=== PATIENT | female | born 1990 | race African-American/Black ===

== ENCOUNTER 2017-11-15 13:25 | Inpatient (IN) | payer SELFPAY ==
[2017-11-15 13:41] LABS: Base Excess-Venous -2.2 mmol/L (0 (+/- 2.5)); Bicarbonate (HCO3v) 21.9 mmol/L (1.0-85.0); CO2 Tension (PvCO2) 33.7 mmHg (41.0-51.0); Calcium, Ionized 1.09 mmol/L (1.12-1.32); Hemoglobin - Calc 9.1 g/dL (12.0-18.0); O2 Tension (PvO2) 16.8 mmHg (35.0-45.0); Potassium 3.6 mmol/L (3.4-4.7); T. Carbon Dioxide 22.9 mmol/L (1.0-85.0); pH (Venous) 7.421 (7.35-7.45); vO2 Saturation-calc 25.1 % (94-98)
[2017-11-15 13:43] LABS: #Basophils 0.1 thou/uL (0.0-0.2); #Eosinphils 0.3 thou/uL (0.0-0.7); #Lymphocytes 4.3 thou/uL (1.20-3.40); #Monocytes 1.2 thou/uL (0.11-0.59); #Neutrophils 6.4 thou/uL (1.40-6.50); %Basophils 0.7 % (0.0-1.0); %Eosinophils 2.1 % (0.0-10.0); %Lymphocytes 35.1 % (21.0-51.0); %Monocytes 9.7 % (0.0-10.0); %Neutrophils 52.3 % (42.0-75.0); Hemoglobin 8.5 g/dL (12.0-16.0); Mean Corpuscular HGB CONC 31.3 g/dL (32.0-36.0); Mean Corpuscular Hemoglobin 25.9 pg (27.0-31.0); Mean Corpuscular Volume 82.8 fl (81.0-99.0); Platelet Count 259 thou/uL (130-400); RBC Distribution Width 13.2 % (11.5-14.5); Red Blood Cell (RBC) Count 3.29 mill/uL (4.20-5.40); White Blood Cell (WBC) Count 12.2 thou/uL (4.8-10.8)
[2017-11-15 13:53] LABS: BHCG - Serum Negative (NEGATIVE); Pregs Control Background? CLEAR/WHITE (CLR/WHITE); Pregs Control Bar Appear? YES (CONTROL BAR)
--- NOTE | 2017-11-15 14:05 | RAD ---
PORTABLE CHEST 1 VIEW: Date: 11/15/17 Time: 1354 hours HISTORY: SVT. FINDINGS: Comparison made with exam of 11/18/12. The heart size is normal. The lungs are well expanded without focal areas of consolidation, pneumotho rax, or pleural effusions. IMPRESSION: No radiographic evidence of acute cardiopulmonary process. POS: [facility]
[2017-11-15 14:08] LABS: Bilirubin Negative (Negative); Blood, Urine Negative (Negative); Clarity CLEAR (Clear); Glucose, Urine (Dipstick) Negative (Negative); Leukocyte Negative (Negative); Nitrite Negative (Negative); Protein, Urine (Dipstick) 30 mg/dL (Neg-Trace); Specific Gravity, Urine 1.031 (1.002-1.036)
[2017-11-15 14:11] LABS: Bacteria/HPF None Seen HPF (None Seen); RBC/HPF 0-3 HPF (0-3)
[2017-11-15 14:11] LABS: CKMB 0.4 ng/mL (0-6.6); Troponin I Less than 0.010 ng/mL (< 0.028)
[2017-11-15 14:12] LABS: Acetaminophen Less than 6.0 mcg/mL (10.0-30.0); Alcohol Less than 10 mg/dL (Less than 10); Salicylate Less than 8.0 mg/dL (15.0-30.0)
[2017-11-15 14:14] LABS: ALT (SGPT) 9 U/L (8-55); AST (SGOT) 15 U/L (5-34); Albumin 3.5 g/dL (3.5-5.0); Alkaline Phosphatase 83 U/L (40-150); Anion Gap 13 mmol/L (10-20); BUN (Urea Nitrogen) 9 mg/dL (7.0-18.7); Bilirubin, Total 0.4 mg/dL (0.2-1.2); Calc. Creatinine Clearance 0 mL/min (70-130); Calcium 8.4 mg/dL (7.8-10.44); Carbon Dioxide 21 mmol/L (22-29); Chloride 103 mmol/L (98-107); Estimated GFR-MDRD Greater than 90; Globulin 3.1 g/dL (2.4-3.5); Glucose 131 mg/dL (70-105); Potassium 3.6 mmol/L (3.5-5.1); Protein, Total 6.6 g/dL (6.0-8.3); Sodium 133 mmol/L (136-145)
[2017-11-15 14:31] LABS: Amphetamine Not Detected (NotDetected); Barbiturates Screen Not Detected (NotDetected); Benzodiazepine Screen Not Detected (NotDetected); Cocaine Metabolite Screen Not Detected (NotDetected); Medtox Control Line Valid? VALID (VALID); Medtox Reader # READER 1; Methadone Not Detected (NotDetected); Methamphetamine Not Detected (NotDetected); Opiate Screen Not Detected (NotDetected); Oxycodone Screen Not Detected (NotDetected); Phencyclidine (PCP) Not Detected (NotDetected); THC/Cannabinoid Screen Not Detected (NotDetected); Tricyclic Screen Not Detected (NotDetected)
[2017-11-15 14:35] LABS: Pathc Cast-AUWi Flag 2.61 (0-2.49)
[2017-11-15 14:53] LABS: Renal Epithelial 0-3 HPF (0-3); Transitional Epithelial 0-3 HPF (0-3)
[2017-11-15 14:59] LABS: Hyaline Casts/LPF 0-3 HYALINE CAST LPF (0-3 Hyaline)
[2017-11-15 15:00] LABS: Other Casts/LPF None Seen LPF (0-3 Hyaline)
--- NOTE | 2017-11-15 15:10 | CT ---
CT HEAD NONCONTRAST DATE: 11/15/17 HISTORY: Left lower extremity weakness. Altered mental status. FINDINGS: No comparison. There is no evidence of acute intracranial hemorrhage or infarct. The ventricles appear normal in siz e, shape, and position. There is no mass effect or shift of midline structures. IMPRESSION: No acute intracranial abnormalities are demonstrated on noncontrast CT head. POS: [facility]
[2017-11-15 17:08] LABS: Hemoglobin 7.3 g/dL (12.0-16.0)
[2017-11-15] MEDS ORDERED: Acetaminophen 325 MG TAB PO PRN (17:22)
[2017-11-15] MEDS ORDERED: Estrogens, Conjugated 0.3 MG TAB PO SCH ×2 (17:30→23:59)
--- NOTE | 2017-11-15 19:07 | ULT ---
PELVIC ULTRASOUND: 11/15/17 No evidence for transvaginal exam or vascular duplex examination. A transabdominal exam only was performed. HISTORY: 27-year-old female with heavy vaginal bleeding, dizziness, and syncope. The uterus is enlarged measuring 13.8 x 10.1 x 9.3 cm with a 1.8 cm thickened endometrium. Right and left ovaries were not demonstrated. There is a very large intrauterine fibroid measuring 6.3 x 7.7 x 8.8 cm. there does appear to be some cul-de-sac fluid. IMPRESSION: Large intrauterine fibroid. Somewhat thickened endometrium at 1,8 cm. Enlarged uterus. Nonvisualized ovaries. Evidence for some free cul-de-sac fluid. POS: [facility]
[2017-11-15] MEDS ORDERED: Sodium Chloride 0.9% 10 ML ONE (19:15)
[2017-11-15] MEDS: Sodium Chloride 0.9% 1,000 ML IV SCH (20:24)
[2017-11-16] MEDS ORDERED: Fentanyl 100 MCG/2 ML VIAL SLOW IVP SCH (01:15)
--- NOTE | 2017-11-16 04:43 | HP ---
DATE OF SERVICE: 11/15/2017 CHIEF COMPLAINT: Dizziness, presyncope, and heavy menstrual bleeding. HISTORY OF PRESENT ILLNESS: This is a 27-year-old para 1 who presented to the emergency department after a presyncopal episode at work. She arrived via EMS and was noted to be tachycardic and anemic. She reports that she has been on her period for approximately 4 days and that it is quite a bit heavier than usual with passage of clots. She started feeling dizzy today and came in for evaluation. She reports mild cramping when she passes clots, otherwise is without pain. While in the emergency department, she dropped her hemoglobin by a gram in 1 hour, so I was consulted for admission. She reports that she is doing okay right now and denies any nausea, vomiting or other concerns. She is currently eating dinner. The patient is on Nexplanon for control and has been for approximately 1-1/2 years. She has had irregular cycles since placement, but never this heavy. REVIEW OF SYSTEMS: Negative for head, eyes, ears, nose, throat, cardiovascular , respiratory, GI, , neuro, psych, musculoskeletal, skin or constitutional symptoms other than mentioned above. PAST MEDICAL HISTORY: Asthma. PAST SURGICAL HISTORY: 1. x1. 2. Foot surgery. MEDICATIONS: Albuterol inhaler as needed. ALLERGIES: No known drug allergies. SOCIAL HISTORY: Negative for tobacco, alcohol, or drug abuse. FAMILY HISTORY: Noncontributory. PHYSICAL EXAMINATION: VITAL SIGNS: Blood pressure 115/61, pulse 111, temperature 99.9, respiratory rate 20, and O2 saturation 99% on room air. GENERAL: Awake, alert, in no acute distress. CHEST: Nonlabored breathing. ABDOMEN: Soft, nontender to palpation, enlarged uterus approximately 15 weeks in size. LABORATORY DATA: Hemoglobin 7.3, hematocrit 23.0, platelets 259,000. Chemistry essentially unremarkable. test negative. Urinalysis consistent with contamination. Urine drug screen negative. IMAGING: Transvaginal ultrasound revealed an enlarged uterus measuring approximately 13.8 x 10.1 x 9.3 cm with a 1.8 cm endometrium. There is one large fibroid measuring 6.3 x 7.7 x 8.8 cm. Small amount of free fluid in the pelvis. Ovaries were not visualized. ASSESSMENT AND PLAN: A 27-year-old para 1 with abnormal uterine bleeding, likely due to her fibroid uterus. Since the Nexplanon has been in place for a year and half without much issue, this is less likely to be the cause with her symptomatic anemia. We will admit for transfusion of packed red blood cells. For acute bleeding, we will start Premarin 2.5 mg 4 times daily until her bleeding decreases. We will continue to monitor. MTDD
[2017-11-16 05:11] VITALS: BMI 24.5
[2017-11-16 05:43] LABS: #Eosinphils 0.3 thou/uL (0.0-0.7); #Lymphocytes 2.5 thou/uL (1.20-3.40); #Monocytes 0.9 thou/uL (0.11-0.59); #Neutrophils 4.7 thou/uL (1.40-6.50); %Basophils 0.1 % (0.0-1.0); %Eosinophils 4.1 % (0.0-10.0); %Lymphocytes 29.5 % (21.0-51.0); %Monocytes 10.8 % (0.0-10.0); %Neutrophils 55.6 % (42.0-75.0); Hemoglobin 6.7 g/dL (12.0-16.0); Mean Corpuscular HGB CONC 33.3 g/dL (32.0-36.0); Mean Corpuscular Hemoglobin 28.1 pg (27.0-31.0); Mean Corpuscular Volume 84.5 fl (81.0-99.0); Mean Platelet Volume 8.9 fL (7.4-10.4); Platelet Count 167 thou/uL (130-400); RBC Distribution Width 13.2 % (11.5-14.5); Red Blood Cell (RBC) Count 2.37 mill/uL (4.20-5.40); White Blood Cell (WBC) Count 8.5 thou/uL (4.8-10.8)
[2017-11-16] MEDS: Sodium Chloride 0.9% 1,000 ML IV SCH ×4 (05:50→18:36)
--- NOTE | 2017-11-16 09:33 | PDOC.EVN ---
Event Note - Event Note Event Note: Report received from Dr. Resendiz. Denies dizziness or headache. VS are stable, P= 108. Abdomen is NT, uterus c/w 16 weeks. Small- moderate amt. of bleeding on pad, no clots. States Dr. Franks did pap on her ~ 1 year ago that was normal. 2nd unit PRBc transfusing now. Will repeat H/H in 4 hrs post transfusion and observe closely.
[2017-11-16 15:00] LABS: Hemoglobin 6.8 g/dL (12.0-16.0)
--- NOTE | 2017-11-16 15:52 | PDOC.EVN ---
Event Note - Event Note Event Note: CTSP for bleeding, large clot passed into toilet. Now s/p 2 units PRBC. Hgb returns unchanged at 6.9. Will make NPO and transfuse with 2 more units of PRBCs.
--- NOTE | 2017-11-16 17:32 | PDOC.EVN ---
Event Note - Event Note Event Note: [place] called for episode of syncope in bathroom. Assisted with getting pt. back to bed. D/w Dr. Becerra, will transfer to ICU for stabilization and transfusion.
--- NOTE | 2017-11-16 18:35 | PDOC.EVN ---
Event Note - Event Note Event Note: Reviewed with Dr. Becerra. BP currently stable in ICU. PRBC ordered, coags pending. Once complete will proceed to OR for EUA and D&C, possible hysteroscopy. Have d/w Dr. Solano.
[2017-11-16 18:43] LABS: Platelet Count 150 thou/uL (130-400)
[2017-11-16 18:46] LABS: Fibrinogen 190 mg/dL (253-463)
[2017-11-16 18:47] LABS: INR-International Normal Ratio 1.2; PTT 25.8 SEC (22.9-36.1); Prothrombin Time 14.9 SEC (12.0-14.7)
--- NOTE | 2017-11-16 18:48 | RAD ---
PORTABLE CHEST: 11/16/17 HISTORY: Hypotension. Lungs appear clear. No evidence of infiltrate. Heart and mediastinum unremarkable. IMPRESSION: No acute abnormality identified. POS: [facility]
[2017-11-16 19:26] LABS: FSP-Qualitative Normal (Normal)
[2017-11-16] MEDS ORDERED: Glycopyrrolate 0.2 MG/ML 5 ML SYRINGE ONE (20:07)
[2017-11-16] MEDS ORDERED: Lidocaine 1% PF 5 ML VIAL ONE (20:07)
[2017-11-16] MEDS ORDERED: Succinylcholine Chloride 20 MG/ML 10 ml SYRINGE FS ONE (20:07)
[2017-11-16] MEDS ORDERED: PROPOFOL 200 MG/20 ML VIAL ONE (20:07)
[2017-11-16] MEDS ORDERED: Midazolam HCl 2 mg/2 ml Vial ONE (20:49)
[2017-11-16] MEDS ORDERED: Fentanyl 100 MCG/2 ML VIAL ONE ×3 (20:49→23:11)
[2017-11-16] MEDS: Famotidine 40 MG/4 ML VIAL SLOW IVP SCH (22:07)
[2017-11-16] MEDS ORDERED: Sodium Chloride 0.9% 20 ML ONE (22:33)
[2017-11-16] MEDS ORDERED: Rocuronium Bromide 50 MG/5 ML VIAL ONE (23:11)
[2017-11-17] MEDS ORDERED: Fentanyl 100 MCG/2 ML VIAL ONE (00:05)
[2017-11-17] MEDS ORDERED: HYDROmorphone 0.5 MG/0.5 ML SYRINGE ONE (00:06)
[2017-11-17] MEDS ORDERED: Morphine 4 MG/ML VIAL SLOW IVP PRN (00:27)
[2017-11-17] MEDS ORDERED: Ondansetron HCl/PF 4 MG/2 ML Vial IVP PRN (00:27)
[2017-11-17] MEDS: Dextrose 5 %-0.45 % NaCl 1,000 ML IV SCH ×3 (01:00→11:36)
--- NOTE | 2017-11-17 01:57 | CON ---
DATE OF CONSULTATION: 11/16/2017 A 27-year-old female who was admitted to the hospital on 11/15 with a syncopal episo de at work. She was found to have severe vaginal bleeding for apparently 4 days. She denies any chest pain, chills or sweats. She was on the OB floor this evening when she became pa le, diaphoretic. Fredy Caro was called and was transferred to the ICU. We were notified about her t ransfer and hypertension. When she arrived, she did not have any access to midline. An 18-gauge catheter had been placed by [facility] ICU nurse. The patient is awake, alert, responsive, appears to be in no significant distress. Additionally to note, she has had no previous history of severe vaginal bleeding. PAST MEDICAL HISTORY: Pertinent for a presumed asthma. No history of diabetes, hypertension. PAST SURGICAL HISTORY: , one child; foot surgery. She has medication apparently MDI inhale r, which she takes as needed. ALLERGIES: None. 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 REVIEW OF SYSTEMS: Ten-point negative. PHYSICAL EXAMINATION: VITAL SIGNS: Sats 100% on room air, pulse is 117, blood pressure 131/79, respirations 16. Stat ches t x-ray shows no infiltrates. CHEST: No wheezing or crackles. CARDIAC: Normal S1, S2, no gallops. ABDOMEN: Soft, distended. LABORATORY DATA: H&H is 6.8 and 20. IMPRESION: 1. Massivevaginal bleeding, felt to be secondary to intrauterine fibroid. 2. History of asthma. Blood being transfused to keep an H&H of 9 and 27. I discussed with OB doctor, Dr. Mccoy that best option is to take to the OR as soon as possible to assess the cause of bleeding. This can be stopped obviously to the best solution. We will observe in the ICU, so far urine output which appears to be stable. Labs otherwise unremarka ble, at this time. Critical care time 45 minutes.
--- NOTE | 2017-11-17 02:26 | OP ---
DATE OF OPERATION: 11/17/2017. PREOPERATIVE DIAGNOSIS: Menorrhagia refractory to medical management. POSTOPERATIVE DIAGNOSIS: Menorrhagia refractory to medical management. PROCEDURES: 1. Examination under anesthesia. 2. Sharp curettage of the uterus. 3. Supracervical hysterectomy. FINDINGS: 1. A 16 week size fibroid uterus. 2. Normal adnexa bilaterally. SURGEON: Tyler Mccoy M.D. MISSILE MECHANIC: Stef Solano DO. ANESTHESIA: General endotracheal. ESTIMATED BLOOD LOSS: 200-300 mL COMPLICATIONS: None. COMPONENTS GIVEN: 2 units of packed red blood cells and 1 unit FFP given by central line. FLUIDS: 1900 mL crystalloid. URINE OUTPUT: 100 mL Prophylaxis: Ancef 2 grams IV prior to incision TECHNIQUE IN DETAIL: After good general endotracheal anesthesia was achieved, a central line was placed by Anesthesia. The patient was prepped and draped in the usual sterile fashion in the dorsal lithotomy position. A copious amount of bleeding was seen from the vagina. One exam the cervix was normal and showed no concerning cervical lesions. The cervical os required minimal dilation and a sharp curet was placed into the interior of the uterus. A copious amount of blood was seen and what appeared to be necrotic tissue was obtained. At this point, it was decided due to the copious nature of her bleeding and the fact that she had required several units of packed red blood cells to proceed with definitive surgery in the form of hysterectomy. While the patient was being prepared for this, I did speak with her designated family member, which was her mother. I explained the situation of the persistent heavy bleeding and that I would be unable to stop it with a D&C and at this point I believed it best to go ahead and move forward with hysterectomy to stop the heavy bleeding. She agreed and consent was obtained. I returned to the operating room, where the patient was placed in the supine position. The abdomen was prepped in the usual sterile fashion and a Clancy catheter had been placed. An incision was made through a previous existing Pfannenstiel scar. The abdomen was entered in layers. Upon entry into the abdominal cavity, it could be seen that she had a 16-week size uterus that appeared to contain a large fibroid. Both adnexa were normal. The uterus was delivered from the incision and a self-retaining retractor was placed. The bowel was packed away with wet lap packs. The round ligaments were divided and then sutured with a Vicryl suture. A bladder flap was created and the bladder was dissected free of the lower uterine segment. The uteroovarian ligaments were divided using paired Ana Maria clamps. Uterine artery pedicles were divided in a similar fashion using Ana Maria clamps. These were suture ligated with Vicryl suture. A series of paired clamps were then placed below the isthmus of the cervix. A decision was made due to her long cervix and the amount of bleeding that she had previously we would stop short of a complete hysterectomy and complete this supracervically. The uterus was then removed from the cervix just below the isthmus. The cervix was then closed using interrupted [id number] Vicryl sutures. Good hemostasis was noted. The pelvic gutters were cleared of all clots and debris and she was thoroughly irrigated. She was noted to be dry throughout the pelvis. A self-retaining retractor and wet lap packs were removed. The omentum was straightened. The fascia was closed using 2 sutures of 0 Vicryl brought laterally to the midline in an alternating running locking fashion. The subcutaneous tissue was made dry using Bovie coagulation technique and the skin was closed with metal pippa. Sponge, lap, and needle counts were correct. The patient tolerated the procedure well and will be taken back to the ICU for recovery. MOMO
[2017-11-17] MEDS: Sodium Chloride 0.9% 1,000 ML IV SCH ×4 (04:12→20:45)
[2017-11-17 05:09] LABS: #Eosinphils 0.1 thou/uL (0.0-0.7); #Lymphocytes 1.2 thou/uL (1.20-3.40); #Monocytes 1.2 thou/uL (0.11-0.59); %Eosinophils 0.4 % (0.0-10.0); %Lymphocytes 7.5 % (21.0-51.0); %Neutrophils 85.1 % (42.0-75.0); Hemoglobin 9.6 g/dL (12.0-16.0); Mean Corpuscular HGB CONC 33.9 g/dL (32.0-36.0); Mean Corpuscular Hemoglobin 30.6 pg (27.0-31.0); Mean Corpuscular Volume 90.2 fl (81.0-99.0); Mean Platelet Volume 9.3 fL (7.4-10.4); Platelet Count 81 thou/uL (130-400); RBC Distribution Width 13.3 % (11.5-14.5); Red Blood Cell (RBC) Count 3.15 mill/uL (4.20-5.40); White Blood Cell (WBC) Count 16.4 thou/uL (4.8-10.8)
[2017-11-17 05:19] LABS: Anion Gap 9 mmol/L (10-20); BUN (Urea Nitrogen) 6 mg/dL (7.0-18.7); Calc. Creatinine Clearance 125 mL/min (70-130); Carbon Dioxide 21 mmol/L (22-29); Chloride 110 mmol/L (98-107); Estimated GFR-MDRD Greater than 90; Glucose 183 mg/dL (70-105); Potassium 3.5 mmol/L (3.5-5.1); Sodium 136 mmol/L (136-145)
--- NOTE | 2017-11-17 07:03 | PRG ---
DATE OF SERVICE: 11/17/2017 SUBJECTIVE: Resting comfortably in ICU. No voiced complaints. OBJECTIVE: VITAL SIGNS: This morning, pulse is 99, blood pressure 100/64, respirations 13 , 100% O2 saturation. Urine output has been 775 mL. ABDOMEN: Soft and flat. Her dressing is dry. GENITOURINARY: Her Clancy shows clear urine. Lab; H/H this AM is 9.6 and 28. ASSESSMENT: Postop day #1, status post supracervical hysterectomy for menorrhagia refractory to medical management. PLAN: She will continue in the ICU this morning and likely she will be able to be transferred to the gynecology floor later today. MOMO
[2017-11-17] MEDS: Mometasone/Formoterol 120 PUFF INHALER INH SCH ×2 (08:07→19:59)
--- NOTE | 2017-11-17 08:32 | PRG ---
DATE OF SERVICE: 11/17/2017 SUBJECTIVE: This morning, awake, alert, and responsive. She was found to have a very large 16 week size fibroid uterus. She was given 2 units of packed cells prior to the procedure. Hysterectomy was performed for excessive bleeding and hypertension. Denies any wheezing or cough. OBJECTIVE: VITAL SIGNS: This morning, pulse 102, blood pressure 102/60, sats are 100% on room air, respiration 22. CHEST: Reveals decreased breath sounds without any wheezing. CARDIAC: Normal S1, S2. No gallops. ABDOMEN: Soft, no masses. LABORATORY DATA: Electrolytes are normal. Her fibrinogen level was slightly low at 190. White coun t 16,000, H&H is 9 and 28, platelet count is 81,000. IMPRESSION: 1. Status post hysterectomy. 3. Low grade DIC. 3. Hypertension. PLAN: The patient to be stable. To be transferred out of the ICU. Continue to monitor lab, H&H. Pulmonary and Critical care will follow at a distance when she leaves the ICU.
[2017-11-17] MEDS: Acetaminophen/Codeine 30-300mg Tablet PO PRN ×3 (09:03→21:32)
[2017-11-17] MEDS: Famotidine 40 MG/4 ML VIAL SLOW IVP SCH ×2 (10:13→20:45)
[2017-11-17] MEDS: Morphine 5 MG/ML SYRINGE SLOW IVP PRN ×2 (11:20→16:02)
[2017-11-18] MEDS: Sodium Chloride 0.9% 1,000 ML IV SCH ×2 (05:17→13:09)
[2017-11-18 05:24] LABS: #Eosinphils 0.1 thou/uL (0.0-0.7); #Lymphocytes 1.4 thou/uL (1.20-3.40); #Monocytes 1.2 thou/uL (0.11-0.59); #Neutrophils 7.7 thou/uL (1.40-6.50); %Basophils 0.2 % (0.0-1.0); %Eosinophils 0.6 % (0.0-10.0); %Lymphocytes 13.2 % (21.0-51.0); %Monocytes 11.5 % (0.0-10.0); %Neutrophils 74.5 % (42.0-75.0); Hemoglobin 8.4 g/dL (12.0-16.0); Mean Corpuscular HGB CONC 33.2 g/dL (32.0-36.0); Mean Corpuscular Hemoglobin 30.1 pg (27.0-31.0); Mean Corpuscular Volume 90.6 fl (81.0-99.0); Mean Platelet Volume 8.3 fL (7.4-10.4); Platelet Count 100 thou/uL (130-400); RBC Distribution Width 13.7 % (11.5-14.5); Red Blood Cell (RBC) Count 2.79 mill/uL (4.20-5.40); White Blood Cell (WBC) Count 10.3 thou/uL (4.8-10.8)
[2017-11-18 05:36] LABS: Anion Gap 6 mmol/L (10-20); BUN (Urea Nitrogen) 4 mg/dL (7.0-18.7); Calc. Creatinine Clearance 123 mL/min (70-130); Calcium 7.2 mg/dL (7.8-10.44); Carbon Dioxide 23 mmol/L (22-29); Chloride 110 mmol/L (98-107); Estimated GFR-MDRD Greater than 90; Glucose 99 mg/dL (70-105); Potassium 3.2 mmol/L (3.5-5.1); Sodium 136 mmol/L (136-145)
--- NOTE | 2017-11-18 07:46 | PRG ---
DATE OF SERVICE: 11/18/2017 SUBJECTIVE: The patient is doing well this morning. She reports her pain is well controlled. She h as ambulated once in the halls, but has not walked much otherwise. She is able to void freely and to lerate a small amount of p.o. PHYSICAL EXAMINATION: VITAL SIGNS: Blood pressure 101/58, pulse 115, respiratory rate 18, temperature 100.0. GENERAL: Awake, alert, in no acute distress. ABDOMEN: Soft, nontender to palpation. No guarding or rebound. Incision is well approximated with no evidence of infection. [place] in place. LABORATORY DATA: WBC 10.3, hemoglobin 8.4, hematocrit 25.3, platelets 100,000. Chemistry: [place] m 3.2, calcium 7.2. Everything else otherwise unremarkable. ASSESSMENT AND PLAN: A 27-year-old status post laparotomy with supracervical hysterectomy, postopera tive day #1, doing fairly well. We will continue to advance diet as tolerated. She was encouraged t o ambulate in the halls more frequently today. We will continue to monitor today. I will order oral potassium replacement.
[2017-11-18] MEDS: Mometasone/Formoterol 120 PUFF INHALER INH SCH ×2 (07:51→20:10)
[2017-11-18] MEDS: Potassium Chloride 20 MEQ TAB PO SCH ×2 (08:25→13:12)
[2017-11-18] MEDS: Famotidine 40 MG/4 ML VIAL SLOW IVP SCH (10:12)
[2017-11-18] MEDS: Acetaminophen/Codeine 30-300mg Tablet PO PRN ×2 (10:59→17:13)
--- NOTE | 2017-11-18 19:00 | PRG ---
DATE OF SERVICE: 11/18/2017 SUBJECTIVE: This morning, awake, alert and responsive. OBJECTIVE: VITAL SIGNS: Blood pressure 131/76, low grade temperature of 99, respirations 18, sats are 99% on ro om air. She denies any pain, shortness of breath or cough. CHEST: Reveals decreased breath sounds, no wheezing. CARDIAC: Normal S1, S2, no gallops. ABDOMEN: Distended, but soft. EXTREMITIES: No edema. LABORATORY DATA: White count 10,000, H&H 8 and 24, platelet count is 100. She has a low grade DIC. IMPRESSION: 1. Status post hysterectomy for profuse vaginal bleeding secondary to fibroids. 2. Low grade disseminated intravascular coagulation, slowly getting better. PLAN: Pulmonary Critical Care will follow at a distance. Disposition as per primary care physician.
[2017-11-18] MEDS ORDERED: Famotidine/PF 20 mg/2ml Vial SLOW IVP SCH (22:30)
[2017-11-19] MEDS: Sodium Chloride 0.9% 1,000 ML IV SCH (00:38)
[2017-11-19] MEDS: Acetaminophen/Codeine 30-300mg Tablet PO PRN ×2 (02:55→08:23)
--- NOTE | 2017-11-19 07:13 | PRG ---
DATE OF SERVICE: 11/19/2017 TIME OF SERVICE: 0700 The patient is postoperative day #2 to 3 status post HANK with blood transfusion of 7 units PRBCs and 2 units FFP for dysfunctional uterine bleeding with fibroids SUBJECTIVE: The patient says she feels much better. She denies weakness, dizziness with ambulation. OBJECTIVE: VITAL SIGNS: Resting at midnight. She had a pulse of 110. Her pulse throughout the day has been 10 1-110. She has been afebrile with a temperature of 98.3, blood pressure 114/55, respirations 18. HEENT: Within normal limits. LUNGS: Clear to auscultation bilaterally. HEART: Regular rate and rhythm, mildly tachycardic. ABDOMEN: Soft, nontender, nondistended. She has hypoactive, but present bowel sounds in all 4 quadr ants. EXTREMITIES: Without clubbing, cyanosis or edema. Perineum dry. LABORATORY STUDIES: A.m. labs were not done despite being a series. These were ordered at this time . IMPRESSION: The patient is doing well status post hysterectomy with significant blood loss. Repeat CBC and base met for this a.m. are pending. We will check these and watch the patient throughout the day. Despite not passing flatus, the patient exhibits no signs or symptoms of bowel obstruction. S he has mild tachycardia without pulsatile and seems to be tolerating her anemia well. We will check the patient out to Dr. Ying and consider for possible discharge home this p.m.
[2017-11-19] MEDS: Mometasone/Formoterol 120 PUFF INHALER INH SCH (07:42)
[2017-11-19 07:59] LABS: #Eosinphils 0.2 thou/uL (0.0-0.7); #Lymphocytes 1.7 thou/uL (1.20-3.40); #Monocytes 1.2 thou/uL (0.11-0.59); #Neutrophils 5.7 thou/uL (1.40-6.50); %Basophils 0.1 % (0.0-1.0); %Eosinophils 1.9 % (0.0-10.0); %Monocytes 13.8 % (0.0-10.0); %Neutrophils 65.1 % (42.0-75.0); Hemoglobin 8.4 g/dL (12.0-16.0); Mean Corpuscular HGB CONC 32.7 g/dL (32.0-36.0); Mean Corpuscular Hemoglobin 29.9 pg (27.0-31.0); Mean Corpuscular Volume 91.4 fl (81.0-99.0); Platelet Count 135 thou/uL (130-400); RBC Distribution Width 13.9 % (11.5-14.5); Red Blood Cell (RBC) Count 2.79 mill/uL (4.20-5.40); White Blood Cell (WBC) Count 8.7 thou/uL (4.8-10.8)
[2017-11-19 08:13] LABS: Anion Gap 7 mmol/L (10-20); BUN (Urea Nitrogen) 4 mg/dL (7.0-18.7); Calc. Creatinine Clearance 131 mL/min (70-130); Calcium 7.6 mg/dL (7.8-10.44); Carbon Dioxide 23 mmol/L (22-29); Chloride 109 mmol/L (98-107); Estimated GFR-MDRD Greater than 90; Glucose 83 mg/dL (70-105); Potassium 3.7 mmol/L (3.5-5.1); Sodium 135 mmol/L (136-145)
[2017-11-19] MEDS ORDERED: Famotidine/PF 20 mg/2ml Vial SLOW IVP SCH (09:00)
[2017-11-19] MEDS ORDERED: Bisacodyl 10 MG SUPP PR PRN (09:23)
[2017-11-19 13:23] VITALS: BP 119/74; TEMP 98.8
[2017-11-19] MEDS ORDERED: Milk Of Magnesia 30 ML UDCUP PO PRN (13:45)
--- NOTE | 2017-11-19 13:55 | DIS ---
DATE OF ADMISSION: 11/15/2017 DATE OF DISCHARGE: 11/19/2017 ADMITTING DIAGNOSES: 1. Menorrhagia. 2. Symptomatic anemia. 3. Fibroid uterus. DISCHARGE DIAGNOSES: 1. Menorrhagia. 2. Symptomatic anemia. 3. Fibroid uterus. PROCEDURE: Supracervical hysterectomy, ICU admission, blood transfusion. CONSULTATIONS: Critical Care. HOSPITAL COURSE: The patient is a 27-year-old female who presented to the emergency room after several days of heavy vaginal bleeding. After evaluation the patient was noted to have a large fibroid on her uterus. It was believed that this was the source of her bleeding. The patient was admitted for a blood transfusion and IV Premarin. On hospital day 2 the patient was transferred to the ICU for syncope and symptomatic anemia and transfused a total of 7units prbcs, and 2 units of ffp H/H recorded sofia was 6.8/20 There the patient was evaluated and the decision was made to take patient to the operating room for surgical evaluation. There, a planned D&C hysteroscopy turned into an abdominal supracervical hysterectomy due to the briskness of the bleeding and the patient's overall status. For complete details of the operation, please refer to the operative note. The procedure was performed without complications and the patient quickly stabilized once the procedure was completed. The patient's postoperative course has been uncomplicated. She is now postoperative day #2. The patient reports that she is tolerating p.o., voiding on her own. She is ambulating, having good pain control. Her hemoglobin has stabilized at 8.4, hematocrit 25.5 and her platelets are on the rise with a sofia of 81,000 now up to 135,000. Potassium has normalized. PHYSICAL EXAMINATION: VITAL SIGNS: Today blood pressure is 112/58, temperature 98.5, pulse of 104, respiratory rate of 20, satting 97% on room air. GENERAL: She appears to be in no acute distress. She is alert and oriented, cooperative and pleasant to interact with. HEENT: Normocephalic, atraumatic. ABDOMEN: Soft. Incision is clean, dry, and intact with pippa. The patient has not had a bowel movement yet. She does pass gas. The patient has been encouraged to ambulate today and would like a suppository if that does not work. She has been drinking prune juice this morning. This afternoon the patient will be discharged to home with Tylenol #3 for pain control. She has been asked to follow up with [facility] the end of the week for staple removal. She will be given instructions to seek medical attention sooner if she experiences fever, increasing pain or bleeding, redness or drainage from the incision site. MOMO
== END 2017-11-19 17:30 | disposition home or self-care (01) | DRG 742 ==
LOC: ERS 13:25 → 3SE 18:43 → CCU 11-16 17:31 → 3SE 11-17 10:38 → 3SW 11-18 11:57
PROVIDERS: ADMIT Obstetrics & Gynecology; ATTEND Obstetrics & Gynecology
PROC: 30233N1 Transfusion of Nonautologous Red Blood Cells into Peripheral Vein, Percutaneous Approach (ICD-10-PCS; 2017-11-15)
PROC: 30233K1 Transfusion of Nonautologous Frozen Plasma into Peripheral Vein, Percutaneous Approach (ICD-10-PCS; 2017-11-16)
PROC: 0UT90ZL Resection of Uterus, Supracervical, Open Approach (ICD-10-PCS; principal; 2017-11-17)
DX: D25.9 Leiomyoma of uterus, unspecified (principal); D65 Disseminated intravascular coagulation [defibrination syndrome]; J45.909 Unspecified asthma, uncomplicated; I10 Essential (primary) hypertension; D64.9 Anemia, unspecified
CPT/HCPCS: 36415; 36430; 51701; 70450; 71045; 76856; 80048; 80053; 80306; 80307; 81003; 81015; 82330; 82553; 82803; 83735; 84484; 84703; 85025; 85049; 85300; 85362; 85379; 85384; 85610; 85730; 86850; 86900; 86901; 88305; 88307; 93005; 93976; 94760; 96360; J2270; A4216; J1170; J2001; J2250; J2405; J2704; J3010; P9016; P9059; S0028

== ENCOUNTER 2018-07-11 18:34 | Emergency (ER) | payer OTHER, SELFPAY ==
[2018-07-11] MEDS ORDERED: Ciprofloxacin HCL/Dexameth Otic Drops 7.5 ml Bottle ONE (18:44)
== END 2018-07-11 19:08 | disposition home or self-care (01) ==
LOC: ERS 18:34
DX: H60.91 Unspecified otitis externa, right ear (principal); H62.41 Otitis externa in other diseases classified elsewhere, right ear; K02.9 Dental caries, unspecified
CPT/HCPCS: 99282

== ENCOUNTER 2019-06-18 11:29 | Emergency (ER) | payer SELFPAY ==
[2019-06-18] MEDS ORDERED: Ondansetron ODT 4 MG TAB ONE (12:09)
[2019-06-18] MEDS ORDERED: Ketorolac Tromethamine 60 MG/2 ML VIAL ONE (12:11)
[2019-06-18] MEDS ORDERED: Dexamethasone 10 MG/ML VIAL ONE (12:11)
== END 2019-06-18 12:36 | disposition home or self-care (01) ==
LOC: ERS 11:29
DX: G62.9 Polyneuropathy, unspecified (principal); R21 Rash and other nonspecific skin eruption; R11.0 Nausea
CPT/HCPCS: 96372; 99283; J1100; J1885; Q0162

== ENCOUNTER 2025-02-13 21:10 | Emergency (ER) | payer BC, SELFPAY ==
[2025-02-13] MEDS ORDERED: Ketorolac Tromethamine 30 MG (1 mL) VIAL ONE (22:53)
[2025-02-13] MEDS ORDERED: HYDROcodone/Acetaminophen 5/325 mg Tablet ONE (22:57)
== END 2025-02-13 23:05 | disposition home or self-care (01) ==
LOC: ERS 21:10
DX: T25.212A Burn of second degree of left ankle, initial encounter (principal); X10.2XXA Contact with fats and cooking oils, initial encounter
CPT/HCPCS: 96372; 99283; J1885